=== PATIENT | male | born 1990 | race Caucasian/White ===

== ENCOUNTER 2024-02-19 15:11 | Emergency (ER) | payer MEDICAID ==
[2024-02-19 15:33] VITALS: TEMP 98.8; O2SAT 97
[2024-02-19] MEDS ORDERED: PERCOCET TABLET 5/325MG ONE (15:37)
[2024-02-19] MEDS ORDERED: MOTRIN 600 MG ONE (15:37)
[2024-02-19] MEDS: MOTRIN 600 MG PO ONE (15:38)
[2024-02-19] MEDS: PERCOCET TABLET 5/325MG PO ONE (15:38)
[2024-02-19] MEDS: Lidoderm Patch 5% TOP ONE (15:44)
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
[2024-02-19 17:13] VITALS: BP 152/96; PULSE 67; RESP 19
== END 2024-02-19 17:13 | disposition home or self-care (01) ==
LOC: ED 15:11
DX: M54.6 Pain in thoracic spine (principal); X50.0XXA Overexertion from strenuous movement or load, initial encounter
CPT/HCPCS: 71046; 99283; A9270-GY

== ENCOUNTER 2024-06-18 17:39 | Emergency (ER) | payer SELFPAY ==
[2024-06-18 17:52] VITALS: TEMP 97
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
[2024-06-18] MEDS ORDERED: Fluor-I-Strip/Ful-Flo OP ONE (18:17)
[2024-06-18] MEDS ORDERED: TETRACAINE 0.5% STERI-UNIT SOL OP ONE (18:17)
[2024-06-18] MEDS: TETRACAINE 0.5% STERI-UNIT SOL OP STA (18:21)
[2024-06-18] MEDS: Fluor-I-Strip/Ful-Flo OP ONE (18:21)
[2024-06-18 19:26] VITALS: BP 135/97; PULSE 89; RESP 16
[2024-06-18] MEDS ORDERED: Cortisporin Eye Drops OP ONE (19:27)
[2024-06-18 19:28] VITALS: O2SAT 99
[2024-06-18] MEDS: Cortisporin Eye Drops OP SCH (19:30)
== END 2024-06-18 19:40 | disposition home or self-care (01) ==
LOC: ED 17:39
DX: T15.92XA Foreign body on external eye, part unspecified, left eye, initial encounter (principal); W44.8XXA Other foreign body entering into or through a natural orifice, initial encounter; H57.12 Ocular pain, left eye
CPT/HCPCS: 99283; A9270-GY